=== PATIENT | female | born 1990 | race Two or more races ===

== ENCOUNTER 2023-06-29 04:59 | Emergency (ER) | payer MEDICAID ==
[~2023-06-29] VITALS: Ht 165.1 cm; Wt 75.0 kg
[2023-06-29 05:43] VITALS: TEMP 98.6
[2023-06-29 05:51] LABS: COVID AG,FIA SOURCE NASAL SWAB
[2023-06-29 06:11] VITALS: BP 126/66; PULSE 78; RESP 16
[2023-06-29 06:17] LABS: RAPID GROUP A STREP NEGATIVE (NEGATIVE)
[2023-06-29 06:25] LABS: INFLUENZA TYPE A NEGATIVE FOR TYPE A (NEGATIVE); INFLUENZA TYPE B NEGATIVE FOR TYPE B (NEGATIVE); SARS-COV2 (COVID) ANTIGEN,FIA Negative (Negative)
[2023-06-29] MEDS ORDERED: AMOX500C2 PO (06:47)
[2023-06-29] MEDS ORDERED: IBUP-1492 PO (06:47)
== END 2023-06-29 06:59 | disposition home or self-care (01) ==
LOC: EMS 05:01
DX: J32.9 Chronic sinusitis, unspecified (principal); J02.9 Acute pharyngitis, unspecified; F12.90 Cannabis use, unspecified, uncomplicated; Z20.822 Contact with and (suspected) exposure to COVID-19
CPT/HCPCS: 87430; 87804; 99283

== ENCOUNTER 2023-08-01 10:54 | Emergency (ER) | payer MEDICAID ==
[~2023-08-01] VITALS: Ht 165.1 cm; Wt 75.0 kg
[~2023-08-01 10:54] MED LIST: AMOX500C2 PO; IBUP-1492 PO
[2023-08-01 11:03] VITALS: TEMP 98.7
[2023-08-01] MEDS: KETOROLAC TROMETHAMINE 30 MG/ML VIAL IVP ONE (11:59)
[2023-08-01] MEDS: DEXAMETHASONE SOD PHOS 4 MG/ML 5 ML VIAL IVP ONE (12:00)
[2023-08-01] MEDS: CefTRIAXone 1 GM/DEXTROSE 50 ML IV ONE (12:00)
[2023-08-01] MEDS ORDERED: IBUP-1492 PO (14:04)
[2023-08-01] MEDS ORDERED: PENI500T2 PO (14:04)
[2023-08-01 14:17] VITALS: BP 117/66; PULSE 78; RESP 16
== END 2023-08-01 15:26 | disposition home or self-care (01) ==
LOC: EMS 11:05
DX: F12.90 Cannabis use, unspecified, uncomplicated (principal)
CPT/HCPCS: 99291; 96365; 96375; 87430; J0696; J1100; J1885

== ENCOUNTER 2024-02-15 13:21 | Emergency (ER) | payer MEDICAID ==
[~2024-02-15] VITALS: Ht 165.1 cm; Wt 72.7 kg
[~2024-02-15 13:21] MED LIST changes: +AMOX250C4 PO; -AMOX500C2 PO; +PENI500T2 PO
[2024-02-15 13:25] VITALS: BP 121/61; PULSE 81; RESP 14; TEMP 98.5; O2SAT 98
[2024-02-15 13:46] LABS: APPEARANCE,URINE CLEAR (CLEAR); BILIRUBIN,URINE SMALL (NEGATIVE); COLOR,URINE ORANGE (YELLOW); GLUCOSE, URINE (UA) NEGATIVE (NEGATIVE); KETONES,URINE NEGATIVE (NEGATIVE); LEUKOCYTE ESTERASE ,URINE MODERATE (NEGATIVE); NITRATE,URINE POSITIVE (NEGATIVE); OCCULT BLOOD,URINE NEGATIVE (NEGATIVE); PROTEIN,URINE TRACE mg/dL (NEGATIVE); SPECIFIC GRAVITIY, URINE 1.023 (1.003-1.030)
[2024-02-15 13:51] LABS: BACTERIA,URINE Moderate /HPF (None Seen); RBC,URINE 0-2 /HPF (0-2); SQUAMOUS EPITHELIAL CELL,UR Many /LPF (None Seen)
[2024-02-15] MEDS ORDERED: CEPH-558 PO (15:25)
[2024-02-15] MEDS: CEPHALEXIN MONOHYDRATE 500 MG CAPSULE PO ONE (15:28)
== END 2024-02-15 15:54 | disposition home or self-care (01) ==
LOC: EMS 13:22
DX: N39.0 Urinary tract infection, site not specified (principal); F12.90 Cannabis use, unspecified, uncomplicated
CPT/HCPCS: 81001; 84703; 87086; 87186; 99283

== ENCOUNTER 2024-09-13 15:09 | Emergency (ER) | payer MEDICAID ==
[~2024-09-13] VITALS: Ht 165.1 cm; Wt 70.5 kg
[~2024-09-13 15:09] MED LIST changes: -AMOX250C4 PO; +CEPH-558 PO; -IBUP-1492 PO; -PENI500T2 PO
[2024-09-13 15:14] VITALS: TEMP 98.6
[2024-09-13] MEDS: SODIUM CHLORIDE 0.9% 1,000 ML IV ONE (15:33)
[2024-09-13] MEDS: ONDANSETRON HCL 4 MG/2 ML VIAL IVP ONE (15:33)
[2024-09-13] MEDS: FAMOTIDINE 20 MG/2 ML VIAL IVP ONE (15:34)
[2024-09-13] MEDS: LORazepam 2 MG/ML VIAL IVP ONE (15:34)
[2024-09-13] MEDS: KETOROLAC TROMETHAMINE 30 MG/ML VIAL IVP ONE (15:34)
[2024-09-13 15:45] LABS: BASOPHILS % (AUTO) 0.7 % (0.0-2.0); EOSINOPHILS % (AUTO) 0.5 % (1.0-6.0); HEMATOCRIT 43.8 % (36-46); HEMOGLOBIN 14.4 g/dL (12.0-16.0); LYMPHOCYTES # (AUTO) 2.4 K/uL (1.0-4.8); MEAN CORPUSCULAR HGB CONC 32.9 G/dL (31.0-37.0); MEAN CORPUSCULAR VOLUME 88 fL (80-100); MONOCYTES # (AUTO) 0.4 K/uL (0.1-1.0); MONOCYTES % (AUTO) 3.6 % (2.0-9.0); NEUTROPHILS % (AUTO) 73.2 % (40.0-70.0); PLATELET COUNT (AUTO) 288 K/uL (150-450); RED BLOOD CELL COUNT(AUTO) 4.98 MIL/uL (4.00-5.20); RED CELL DISTRIBUTION WIDTH 13.6 % (11.5-14.5); WHITE BLOOD COUNT (AUTO) 10.9 K/uL (4.5-11.0)
[2024-09-13 15:59] LABS: ANION GAP 20 mmol/L (8-16); CALCIUM, TOTAL 9.7 mg/dL (8.8-10.5); CARBON DIOXIDE 19 mmol/L (22-29); CHLORIDE 103 mmol/L (98-107); CREATININE 0.78 mg/dL (0.60-1.30); GLOMERULAR FILTR. RATE CALC > 60 mL/min (>60); GLUCOSE,RANDOM 107 mg/dL (70-110); POTASSIUM 3.6 mmol/L (3.5-5.1); SODIUM SERUM 142 mmol/L (136-145); UREA NITROGEN, BLOOD 9 mg/dL (7-18)
[2024-09-13 16:03] LABS: ALCOHOL, BLOOD (SERUM) < 3 mg/dL (0-10)
[2024-09-13 16:04] LABS: ALBUMIN 4.2 g/dL (3.4-5.0); BILIRUBIN,DIRECT 0.1 mg/dL (0.00-0.20); BILIRUBIN,TOTAL 0.4 mg/dL (0.1-1.0); TOTAL PROTEIN, SERUM 7.8 g/dL (6.4-8.2)
[2024-09-13 16:09] LABS: CREATINE KINASE, TOTAL ONLY 96 U/L (26-192); PHOSPHORUS 1.6 mg/dL (2.5-4.9); TROPONIN I-HIGH SENSITIVITY Less Than 4 ng/L (<51)
[2024-09-13 16:45] VITALS: BP 141/97; PULSE 84; RESP 20; O2SAT 99
[2024-09-13] MEDS ORDERED: ONDANSETRON HCL 4 MG/2 ML VIAL IVP PRN (16:45)
[2024-09-13] MEDS ORDERED: MAGNESIUM SULFATE 2 GM/WATER 50 ML IV PRN (16:45)
[2024-09-13] MEDS ORDERED: ACETAMINOPHEN 325 MG TABLET PO PRN (16:45)
[2024-09-13] MEDS ORDERED: MAGNESIUM OXIDE 400 MG TABLET PO PRN (16:45)
[2024-09-13] MEDS ORDERED: MAGNESIUM HYDROXIDE SUSPENSION 30 ML UDCUP PO PRN (16:45)
[2024-09-13] MEDS ORDERED: MAGNESIUM SULFATE 4 GM/WATER 100 ML IV PRN (16:45)
[2024-09-13] MEDS ORDERED: ZOLPIDEM TARTRATE 5 MG TABLET PO PRN (16:45)
[2024-09-13] MEDS: POTASSIUM PHOS,M-BASIC-D-BASIC 20 MMOL in DEXTROSE 5%-WATER 150 ML IV ONE (16:51)
[2024-09-13] MEDS: 1: MAGNESIUM SULFATE 2 GM, MVI, ADULT NO.1 WITH VIT K 10 ML, THIAMINE 100 MG, FOLIC ACID IV SCH (17:00)
[2024-09-13] MEDS: SOD PHOS DI, MONO/K PHOS MONO 250 MG TABLET PO ONE (17:05)
[2024-09-13] MEDS ORDERED: FAMOTIDINE 20 MG TABLET PO SCH (21:00)
== END 2024-09-13 17:49 | disposition left against medical advice (07) ==
LOC: EMS 15:12 → UNDOADMIN 16:40 → EDH 16:40 → EMS 17:49
DX: K29.20 Alcoholic gastritis without bleeding (principal); E83.39 Other disorders of phosphorus metabolism; E83.42 Hypomagnesemia; F12.90 Cannabis use, unspecified, uncomplicated; Z87.440 Personal history of urinary (tract) infections
CPT/HCPCS: 99291; 96374; 96375; 96361; 80048; 80076; 82550; 83735; 84100; 84484; 84703; 85025; 36415; 93005; 82040; J1885; G0480; J3490 ×4; J2060; J2405; J3411; J7060; J3475; J7030; 99285; G0378

== ENCOUNTER 2024-12-07 05:16 | Emergency (ER) | payer MEDICAID ==
[~2024-12-07] VITALS: Ht 167.6 cm; Wt 77.3 kg
[2024-12-07 05:46] VITALS: TEMP 98.2
[2024-12-07 06:13] LABS: PLATELET COUNT (AUTO) 335 K/uL (150-450); RED BLOOD CELL COUNT(AUTO) 4.51 MIL/uL (4.00-5.20); RED CELL DISTRIBUTION WIDTH 14.2 % (11.5-14.5); WHITE BLOOD COUNT (AUTO) 11.8 K/uL (4.5-11.0)
[2024-12-07] MEDS ORDERED: KETOROLAC TROMETHAMINE 30 MG/ML VIAL IVP ONE (06:15)
[2024-12-07 06:17] LABS: CALCIUM, TOTAL 9.2 mg/dL (8.8-10.5); CREATININE 0.73 mg/dL (0.60-1.30); GLOMERULAR FILTR. RATE CALC > 60 mL/min (>60); GLUCOSE,RANDOM 97 mg/dL (70-110); SODIUM SERUM 141 mmol/L (136-145); UREA NITROGEN, BLOOD 11 mg/dL (7-18)
[2024-12-07] MEDS: SODIUM CHLORIDE 0.9% 1,000 ML IV ONE (06:23)
[2024-12-07] MEDS: ONDANSETRON HCL 4 MG/2 ML VIAL IVP ONE (06:23)
[2024-12-07] MEDS: FAMOTIDINE 20 MG/2 ML VIAL IVP ONE (06:24)
[2024-12-07] MEDS: KETOROLAC TROMETHAMINE 15 MG/ML VIAL IVP ONE (06:24)
[2024-12-07 06:31] LABS: ASPARTATE AMINOTRANSFERASE 16 U/L (15-37); HCG,QUANTITATIVE < 1 mIU/mL (0-6); TOTAL PROTEIN, SERUM 7.5 g/dL (6.4-8.2)
[2024-12-07 06:32] LABS: ALCOHOL, BLOOD (SERUM) 15 mg/dL (0-10)
[2024-12-07 06:49] LABS: APPEARANCE,URINE HAZY (CLEAR); GLUCOSE, URINE (UA) NEGATIVE (NEGATIVE); LEUKOCYTE ESTERASE ,URINE TRACE (NEGATIVE); NITRATE,URINE NEGATIVE (NEGATIVE); OCCULT BLOOD,URINE NEGATIVE (NEGATIVE); SPECIFIC GRAVITIY, URINE 1.026 (1.003-1.030)
[2024-12-07 06:57] LABS: ALCOHOL, URINE DRUG SCREEN NEGATIVE (NEGATIVE); AMPHET/METH SCREEN,URINE NEGATIVE (NEGATIVE); BARBITURATE SCREEN, URINE NEGATIVE (NEGATIVE); CANNABINOID SCREEN,URINE POSITIVE (NEGATIVE); COCAINE SCREEN,URINE NEGATIVE (NEGATIVE); METHADONE SCREEN, URINE NEGATIVE (NEGATIVE)
[2024-12-07 07:08] LABS: PH,URINE DRUG SCREEN 7.0 (5.0-8.0)
[2024-12-07 07:09] LABS: SQUAMOUS EPITHELIAL CELL,UR Few /LPF (None Seen)
[2024-12-07] MEDS: MORPHINE SULFATE 2 MG/ML SYRINGE IVP ONE (07:44)
[2024-12-07] MEDS: POTASSIUM PHOS,M-BASIC-D-BASIC 10 MMOL in DEXTROSE 5%-WATER 100 ML IV ONE (08:05)
[2024-12-07] MEDS: METOCLOPRAMIDE HCL 5 MG/ML 2 ML VIAL IVP ONE (08:05)
[2024-12-07] MEDS ORDERED: ONDA-104 PO (08:46)
[2024-12-07 09:53] VITALS: BP 110/59; PULSE 71; RESP 16; O2SAT 98
== END 2024-12-07 09:54 | disposition home or self-care (01) ==
LOC: EMS 05:21
DX: R11.2 Nausea with vomiting, unspecified (principal); F10.90 Alcohol use, unspecified, uncomplicated; E83.39 Other disorders of phosphorus metabolism; F41.9 Anxiety disorder, unspecified; N89.8 Other specified noninflammatory disorders of vagina; F12.90 Cannabis use, unspecified, uncomplicated; Z79.899 Other long term (current) drug therapy; Y90.1 Blood alcohol level of 20-39 mg/100 ml
CPT/HCPCS: 99284; 96375; 96365; 96361; 96366; 80048; 80076; 81001; 83735; 84100; 84702; 85025; 36415; 80307; J1885; G0480; J1200; J3490 ×2; J2765; J2270; J2405; J7060; J7030

== ENCOUNTER 2024-12-29 12:55 | Emergency (ER) | payer MEDICAID, OTHER ==
[~2024-12-29] VITALS: Ht 162.6 cm; Wt 63.6 kg
[~2024-12-29 12:55] MED LIST changes: +ONDA-104 PO
[2024-12-29 12:58] VITALS: TEMP 98.9
[2024-12-29] MEDS: SODIUM CHLORIDE 0.9% 1,000 ML IV ONE (13:35)
[2024-12-29 13:50] LABS: CALCIUM, TOTAL 8.8 mg/dL (8.8-10.5); CREATININE 0.83 mg/dL (0.60-1.30); GLOMERULAR FILTR. RATE CALC > 60 mL/min (>60); GLUCOSE,RANDOM 98 mg/dL (70-110); SODIUM SERUM 142 mmol/L (136-145); UREA NITROGEN, BLOOD 12 mg/dL (7-18)
[2024-12-29 13:57] LABS: PLATELET COUNT (AUTO) 285 K/uL (150-450); RED BLOOD CELL COUNT(AUTO) 4.58 MIL/uL (4.00-5.20); RED CELL DISTRIBUTION WIDTH 14.4 % (11.5-14.5); WHITE BLOOD COUNT (AUTO) 11.5 K/uL (4.5-11.0)
[2024-12-29] MEDS ORDERED: ONDANSETRON HCL 4 MG/2 ML VIAL ONE (13:57)
[2024-12-29 14:01] LABS: ASPARTATE AMINOTRANSFERASE 18.0 U/L (15-37); HCG,QUANTITATIVE 2.0 mIU/mL (0-6); TOTAL PROTEIN, SERUM 7.3 g/dL (6.4-8.2)
[2024-12-29] MEDS: ONDANSETRON HCL 4 MG/2 ML VIAL IVP ONE ×2 (14:03→14:08)
[2024-12-29] MEDS ORDERED: IOHEXOL 350 MG/ML 100 ML VIAL ONE (14:35)
[2024-12-29] MEDS ORDERED: SODIUM CHLORIDE 0.9% 0 ML ONE (14:35)
[2024-12-29 14:53] LABS: ALCOHOL, BLOOD (SERUM) < 3 mg/dL (0-10)
[2024-12-29] MEDS: MORPHINE SULFATE 2 MG/ML SYRINGE IVP ONE (14:55)
[2024-12-29] MEDS: FAMOTIDINE 20 MG/2 ML VIAL IVP ONE (14:56)
[2024-12-29] MEDS: METOCLOPRAMIDE HCL 5 MG/ML 2 ML VIAL IVP ONE (14:56)
[2024-12-29] MEDS ORDERED: 0.9% SODIUM CHLORIDE 10 ML SYRINGE IVP ONE (16:03)
[2024-12-29] MEDS ORDERED: IOHEXOL 300 MG/ML 100 ML VIAL ONE (16:03)
[2024-12-29] MEDS ORDERED: SODIUM CHLORIDE 0.9% 100 ML ONE (16:03)
[2024-12-29] MEDS: MAGNESIUM SULFATE 1 GM in DEXTROSE 5%-WATER 50 ML IV ONE (16:29)
[2024-12-29 17:48] VITALS: BP 115/65; PULSE 48; RESP 20; O2SAT 99
== END 2024-12-29 18:32 | disposition home or self-care (01) ==
LOC: EMS 12:56
DX: F12.90 Cannabis use, unspecified, uncomplicated (principal); R11.2 Nausea with vomiting, unspecified; F10.90 Alcohol use, unspecified, uncomplicated; F41.9 Anxiety disorder, unspecified; N89.8 Other specified noninflammatory disorders of vagina
CPT/HCPCS: 99285; 74177; 96375; 96365; 96361; 96366; 80048; 80076; 83690; 83735; 84702; 85025; 36415; 93005; G0480; J1200; J3490; J2765; J2270; J2405; J7060; J3475; J7030; J7050; Q9967

== ENCOUNTER 2025-01-24 11:25 | Emergency (ER) | payer OTHER ==
[~2025-01-24] VITALS: Ht 162.6 cm; Wt 68.0 kg
[~2025-01-24 11:25] MED LIST changes: -CEPH-558 PO
[2025-01-24 12:07] LABS: PLATELET COUNT (AUTO) 309 K/uL (150-450); RED BLOOD CELL COUNT(AUTO) 4.87 MIL/uL (4.00-5.20); RED CELL DISTRIBUTION WIDTH 13.9 % (11.5-14.5); WHITE BLOOD COUNT (AUTO) 7.5 K/uL (4.5-11.0)
[2025-01-24] MEDS: FAMOTIDINE 20 MG/2 ML VIAL IVP ONE (12:07)
[2025-01-24] MEDS: KETOROLAC TROMETHAMINE 30 MG/ML VIAL IVP ONE (12:07)
[2025-01-24] MEDS: MAG HYDROX/ALUMINUM HYD/SIMETH 30 ML SUSPENSION UDCUP PO ONE (12:08)
[2025-01-24] MEDS: ONDANSETRON HCL 4 MG/2 ML VIAL IVP ONE (12:08)
[2025-01-24 12:15] LABS: CALCIUM, TOTAL 9.1 mg/dL (8.8-10.5); CREATININE 0.80 mg/dL (0.60-1.30); GLOMERULAR FILTR. RATE CALC > 60 mL/min (>60); GLUCOSE,RANDOM 112 mg/dL (70-110); SODIUM SERUM 140 mmol/L (136-145); UREA NITROGEN, BLOOD 13 mg/dL (7-18)
[2025-01-24 12:20] LABS: ASPARTATE AMINOTRANSFERASE 16.0 U/L (15-37); TOTAL PROTEIN, SERUM 7.4 g/dL (6.4-8.2)
[2025-01-24] MEDS: SODIUM CHLORIDE 0.9% 1,000 ML IV ONE ×2 (12:26→13:46)
[2025-01-24] MEDS: MORPHINE SULFATE 2 MG/ML SYRINGE IVP ONE (12:45)
[2025-01-24] MEDS: METOCLOPRAMIDE HCL 5 MG/ML 2 ML VIAL IVP ONE (13:46)
[2025-01-25 00:30] VITALS: BP 119/65; PULSE 68; RESP 15; TEMP 97.3; O2SAT 99
== END 2025-01-25 00:30 | disposition home or self-care (01) ==
LOC: EMS 11:25
DX: F12.920 Cannabis use, unspecified with intoxication, uncomplicated (principal); R11.2 Nausea with vomiting, unspecified; F10.90 Alcohol use, unspecified, uncomplicated; F41.9 Anxiety disorder, unspecified; Z79.899 Other long term (current) drug therapy; Y90.9 Presence of alcohol in blood, level not specified
CPT/HCPCS: 99285; 96375; 96374; 96361; 80048; 80076; 83690; 83735; 84703; 85025; 36415; J1885; J1200; J3490; J1630; J2765; J2270; J2405; J7030